=== PATIENT | female | born 1950 | race African-American/Black ===

== ENCOUNTER 2016-08-03 05:25 | Emergency (ER) | payer BC ==
[~2016-08-03 05:25] MED LIST: AMITIZA24 PO; ARIMIDEX1 PO; ASAB PO; DCN100 PO; FISH-EPA1000 MG PO; HYOMAX-SL0.125 MG PO; LISINOPRIL40 MG PO; LOP100 PO; MULTIVITAMI1 PO; NAP500 PO; NORV10 PO; PRAVAC PO; PRILO PO; ULTRAM50 PO; VICODINTAB PO; ZANTAC150 MG PO; ZONEGRAN PO
[2016-10-06] MEDS ORDERED: FISH-EPA1000 MG PO (19:14)
[2016-10-06] MEDS ORDERED: NAP500 PO (19:14)
[2016-10-06] MEDS ORDERED: HALF81 PO (19:14)
[2016-10-06] MEDS ORDERED: CALTRA600D PO (19:15)
[2016-10-06] MEDS ORDERED: LOP50 PO (19:15)
[2016-10-06] MEDS ORDERED: ARIMIDEX1 PO (19:16)
[2016-10-06] MEDS ORDERED: GENERLAC PO (19:17)
[2016-10-06] MEDS ORDERED: PRAVAC PO (19:17)
[2016-10-06] MEDS ORDERED: PRILO PO (19:17)
[2016-10-06] MEDS ORDERED: ULTRAM50 PO (19:18)
[2016-10-06] MEDS ORDERED: ANASPAZ0.125 MG PO (19:20)
[2016-10-06] MEDS ORDERED: NORV10 PO (19:20)
[2016-10-06] MEDS ORDERED: LISINOPRIL40 MG PO (19:21)
[2016-10-08] MEDS ORDERED: LIPITOR80 MG PO (15:34)
[2016-10-08] MEDS ORDERED: KEPPRA500 PO (15:34)
== END 2016-08-03 05:42 | disposition home or self-care (01) ==
LOC: ER 05:25
DX: S61.254A Open bite of right ring finger without damage to nail, initial encounter (principal); W53.01XA Bitten by mouse, initial encounter; Z79.82 Long term (current) use of aspirin; Z79.891 Long term (current) use of opiate analgesic; Z79.899 Other long term (current) drug therapy
CPT/HCPCS: 90471; 90714; 99283